=== PATIENT | male | born 1965 | race Caucasian/White ===

== ENCOUNTER 2022-10-16 18:36 | Emergency (ER) | payer OTHER ==
[~2022-10-16] VITALS: Ht 175.3 cm; Wt 81.7 kg
[~2022-10-16 18:36] MED LIST: LEVOTHYROXINE175 MCG PO; PRAVACHOL20 MG PO
== END 2022-10-16 22:30 | disposition home or self-care (01) ==
LOC: ED 18:36
DX: S61.217A Laceration without foreign body of left little finger without damage to nail, initial encounter (principal); Z23 Encounter for immunization; Z88.0 Allergy status to penicillin; Z88.8 Allergy status to other drugs, medicaments and biological substances; Z79.899 Other long term (current) drug therapy; W26.0XXA Contact with knife, initial encounter
CPT/HCPCS: 90471; 90472; 90714; 99282